=== PATIENT | female | born 1960 | race Caucasian/White ===

== ENCOUNTER 2018-11-10 22:45 | Emergency (ER) | payer MEDICAID, OTHER, SELFPAY ==
[~2018-11-10] VITALS: Ht 165.1 cm; Wt 70.0 kg
--- NOTE | 2018-11-10 22:58 | NUR ---
PT BIB RODRIGO C/O NEAR SYNCOPAL EPISODE. PT AT [facility] WHEN FELT LIGHT HEADED AND ASSISTED SELF TO GROUND AND CALLED 911. [facility] NOTED BP OF 80'S/60'S UPON TRIAGE AND CLAMMY, COOL SKING. GAVE 800 ML NS AND BP 100'S/80'S. PT DENIES CP/SOB. NEURO OTHERWISE INTACT. A+Ox4. ALL MONITORING APPLIED. VSS. CALL LIGHT WITHIN REACH.
--- NOTE | 2018-11-10 23:16 | NUR ---
PT STATES SURGERYx2 WEEKS AGO TO GET BREAST AUGMENTATION REMOVED.
[2018-11-10 23:30] LABS: BASOPHILS # (AUTO) 0.03 x10^3/uL (0-0.1); BASOPHILS % (AUTO) 1 % (0-1); EOSINOPHILS # (AUTO) 0.16 x10^3/uL (0-0.4); EOSINOPHILS % (AUTO) 2 % (1-7); LYMPHOCYTES # (AUTO) 1.39 x10^3/uL (1-3.4); LYMPHOCYTES % (AUTO) 19 % (22-44); MD NO; MEAN CORPUSCULAR HEMOGLOBIN 31.8 pg (27.0-34.8); MEAN CORPUSCULAR HGB CONC 34.6 g/dL (32.4-35.8); MEAN CORPUSCULAR VOLUME 92.1 fL (80-100); MEAN PLATELET VOLUME 7.9 fL (7.4-10.4); MONOCYTES # (AUTO) 0.25 x10^3/uL (0.2-0.8); MONOCYTES % (AUTO) 3 % (2-9); NEUTROPHILS # (AUTO) 5.48 x10^3/uL (1.8-6.8); NEUTROPHILS % (AUTO) 75 % (42-75); PLATELET COUNT 289 x10^3/uL (130-400); RED BLOOD COUNT 3.98 x10^6/uL (3.82-5.3); RED CELL DISTRIBUTION WIDTH 12.5 % (9.6-15.2)
[2018-11-10 23:41] LABS: ALANINE AMINOTRANSFERASE 19 U/L (12-78); ALBUMIN 3.3 g/dL (3.4-5.0); ANION GAP 9 mmol/L (5-15); CHLORIDE 108 mmol/L (98-107); CREATININE 0.92 mg/dL (0.55-1.02)
[2018-11-10 23:46] VITALS: BP 149/89
[2018-11-10 23:46] LABS: ALKALINE PHOSPHATASE 69 U/L (45-117); BILIRUBIN,TOTAL 0.3 mg/dL (0.2-1.0); TOTAL PROTEIN 7.1 g/dL (6.4-8.2); TROPONIN I < 0.015 ng/mL (0.000-0.045)
--- NOTE | 2018-11-10 23:56 | NUR ---
NO IMMEDIATE NEEDS FROM PT. AWAITING LAB RESULTS. VSS.
--- NOTE | 2018-11-11 00:16 | NUR ---
ALL RESULTS BACK. PT UP FOR RECHECK.
--- NOTE | 2018-11-11 00:20 | NUR ---
AT BEDSIDE FOR RECHECK.
--- NOTE | 2018-11-11 00:30 | NUR ---
PT AMB W/ STEADY GAIT AT THIS TIME. AWARE. AWAITING D/C PAPERWORK.
== END 2018-11-11 00:56 | disposition home or self-care (01) ==
LOC: ED 23:50
DX: R55 Syncope and collapse (principal)
CPT/HCPCS: 36415; 71045; 80053; 80307; 84484; 85025; 93005; 99284